=== PATIENT | male | born 1975 | race Caucasian/White ===

== ENCOUNTER 2016-08-20 05:23 | Emergency (ER) | payer MEDICAID ==
[~2016-08-20] VITALS: Ht 175.3 cm; Wt 96.0 kg
[2016-08-20 05:49] VITALS: Ht 175.3 cm; Wt 96.0 kg
[2016-08-20] MEDS ORDERED: SOD CHLORIDE 0.9% 1,000 ML IV ONE (08:00)
[2016-08-20] MEDS ORDERED: ONDANSETRON 4 MG INJ IV STA (08:31)
[2016-08-20] MEDS ORDERED: DICLOFENAC SODIUM 37.5 MG/ML VIAL IV STA (08:31)
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
[2016-08-20 09:06] LABS: ADD SCAN DIFF NO
[2016-08-20 09:11] LABS: ADD UMIC YES; URINE BILIRUBIN (Dip) 1+ (NEGATIVE); URINE BLOOD (Dip) NEGATIVE (NEGATIVE); URINE COLOR ORANGE (YELLOW); URINE GLUCOSE (Dip) NEGATIVE (NEGATIVE); URINE KETONES (Dip) NEGATIVE (NEGATIVE); URINE LEUKOCYTE ESTERASE (Dip) NEGATIVE (NEGATIVE); URINE NITRITE (Dip) NEGATIVE (NEGATIVE); URINE TOTAL PROTEIN (Dip) 2+ (NEGATIVE); URINE UROBILINOGEN (Dip) 0.2 E.U./dL (0.1-1.0)
[2016-08-20 09:12] LABS: BASOPHIL # 0.1 10^3/ul (0.0-0.1); BASOPHILS % 0.8 % (0.0-2.0); EOSINOPHILS # 0.3 10^3/ul (0.0-0.5); HEMATOCRIT 44.8 % (42.0-52.0); HEMOGLOBIN 15.4 g/dl (14.0-18.0); LYMPHOCYTES # 1.4 10^3/ul (0.8-2.9); LYMPHOCYTES % 16.6 % (15.0-51.0); MEAN CORPUSCULAR HEMOGLOBIN 29.3 pg (29.0-33.0); MEAN CORPUSCULAR HGB CONC 34.4 g/dl (32.0-37.0); MEAN CORPUSCULAR VOLUME 85.3 fl (82.0-101.0); MONOCYTE # 0.8 10^3/ul (0.3-0.9); MONOCYTES % 9.1 % (0.0-11.0); NEUTROPHILS % 70.3 % (39.0-77.0); PLATELET COUNT 246 10^3/UL (140-415); RED BLOOD COUNT 5.25 10^6/ul (4.70-6.10); RED CELL DISTRIBUTION WIDTH 12.7 % (11.5-14.5); WHITE BLOOD COUNT 8.6 10^3/ul (4.8-10.8)
[2016-08-20 09:19] LABS: ALBUMIN 4.4 g/dl (3.3-4.9); CHLORIDE 98 mmol/L (97-110); SODIUM 140 mmol/L (135-144)
[2016-08-20 09:20] LABS: INR 0.97; POTASSIUM 4.3 mmol/L (3.5-5.1); PROTIME 12.9 Sec (12.2-14.2)
[2016-08-20 09:21] LABS: PARTIAL THROMBOPLASTIN TIME 25.8 Sec (25.0-35.0)
[2016-08-20 09:22] LABS: ALANINE AMINOTRANSFERASE 53 IU/L (13-69); ALBUMIN/GLOBULIN RATIO 1.02; ALKALINE PHOSPHATASE 136 IU/L (42-121); ANION GAP 19 (8-16); ASPARTATE AMINO TRANSFERASE 33 IU/L (15-46); BILIRUBIN,INDIRECT 0.9 mg/dl (0-1.1); BILIRUBIN,TOTAL 0.9 mg/dl (0.2-1.3); BLOOD UREA NITROGEN 13 mg/dl (7-20); CALCIUM 9.6 mg/dl (8.4-10.2); CARBON DIOXIDE 27 mmol/L (21-31); CREATININE 0.78 mg/dl (0.61-1.24); GLUCOSE 185 mg/dl (70-220); ICTOTEST NEGATIVE (NEGATIVE); TOTAL PROTEIN 8.7 g/dl (6.1-8.1)
[2016-08-20 09:23] LABS: MUCUS,URINE MODERATE; URINE RBCS NONE SEEN /HPF (0)
[2016-08-20 09:37] LABS: TROPONIN-I < 0.012 ng/ml (0.00-0.12)
[2016-08-20] MEDS ORDERED: METF-382 PO (11:24)
[2016-08-20] MEDS ORDERED: NAPR-688 PO (11:24)
[2016-08-20] MEDS ORDERED: AMO500 PO (11:24)
[2016-08-20] MEDS ORDERED: AMLO-145 PO (11:24)
[2016-08-20] MEDS ORDERED: BENZ100C70 PO (11:24)
[2016-08-20 11:40] VITALS: BP 128/56; PULSE 60; RESP 18; TEMP 97.1
--- NOTE | 2016-08-20 11:40 | ERD ---
ER Documentation Chief Complaint Date/Time DATE: 08/20/16 TIME: 11:30 Chief Complaint cough x 5 days, incessant, chest pain, lightheaded, diaphoresis, HI sugar HPI This 40-year-old male presents to the ER with 5 days of cough. He has chest pain that is made worse when he coughs and is described as across his entire chest. He's had no fevers but has felt extra tired and a little lightheaded. States that he has checked his sugar at home and it was high. He is diagnosed with diabetes long ago and has not taken any diabetic medication for 10 years. No abdominal pain and diarrhea. Does feel like he has some nausea. Also has generalized body aches. ROS All systems reviewed and are negative except as per history of present illness. Medications Home Meds Active Scripts Naproxen* (Naproxen*) 500 Mg Tablet, 500 MG PO BID, #20 TAB Prov:LUISRAMESH 08/20/16 Benzonatate* (Tessalon Perle*) 100 Mg Capsule, 100 MG PO Q8H Y for COUGH, #20 CAP Prov:LUISRAMESH DO 08/20/16 Amoxicillin* (Amoxicillin*) 500 Mg Cap, 500 MG PO Q8, #30 CAP Prov:LUISRAMESH DO 08/20/16 Metformin Hcl* (Metformin Hcl*) 500 Mg Tablet, 500 MG PO WITH BREAKFAST DINNE, # 30 TAB Prov:RAMESH SMITH DO 08/20/16 Amlodipine Besylate* (Amlodipine Besylate*) 5 Mg Tablet, 5 MG PO DAILY, #18 TAB Prov:RAMESH SMITH 08/20/16 Allergies Allergies: Coded Allergies: No Known Allergy (Unverified , 08/20/16) PMhx/Soc History of Surgery: No Anesthesia Reaction: No Hx Neurological Disorder: No Hx Respiratory Disorders: No Hx Cardiac Disorders: No Hx Psychiatric Problems: No Hx Miscellaneous Medical Probl: Yes (DM) Hx Alcohol Use: Yes Hx Substance Use: No Hx Tobacco Use: Yes Smoking Status: Current every day smoker Physical Exam Vitals Vital Signs Date Time Temp Pulse Resp B/P Pulse Ox O2 Delivery O2 Flow Rate FiO2 08/20/16 09:16 98.4 85 16 118/81 98 Room Air 08/20/16 05:49 97.6 94 16 170/92 96 Physical Exam Const: [] No distress Head: Atraumatic Eyes: Normal Conjunctiva, EOMI, PERRLA ENT: Normal External Ears, Nose and Mouth. Neck: Full range of motion..~ No meningismus. Resp: Clear to auscultation bilaterally Cardio: Regular rate and rhythm, no murmurs Abd: Soft, non tender, non distended. Normal bowel sounds Skin: No petechiae or rashes Back: No midline or flank tenderness Ext: No cyanosis, or edema Neur: Awake and alert and oriented 3, no focal deficits Psych: Normal Mood and Affect Result Diagram: 08/20/1682908/20/1630 Results 24 hrs Laboratory Tests Test 08/20/16 05:38 08/20/16 08:30 08/20/16 10:48 Bedside Glucose 177mg/dL Activated Partial Thromboplast Time 25.8Sec Alanine Aminotransferase (ALT/SGPT) 53IU/L Albumin 4.4g/dl Albumin/Globulin Ratio 1.02 Alkaline Phosphatase 136IU/L Anion Gap 19 Aspartate Amino Transf (AST/SGOT) 33IU/L Basophils # 0.110^3/ul Basophils % 0.8% Blood Urea Nitrogen 13mg/dl Calcium Level 9.6mg/dl Carbon Dioxide Level 27mmol/L Chloride Level 98mmol/L Creatinine 0.78mg/dl Direct Bilirubin 0.00mg/dl Eosinophils # 0.310^3/ul Eosinophils % 3.0% Globulin 4.30g/dl Glucose Level 185mg/dl Hematocrit 44.8% Hemoglobin 15.4g/dl INR International Normalized Ratio 0.97 Indirect Bilirubin 0.9mg/dl Lactic Acid Level 1.5mmol/L 1.3mmol/L Lymphocytes # 1.410^3/ul Lymphocytes % 16.6% Mean Corpuscular Hemoglobin 29.3pg Mean Corpuscular Hemoglobin Concent 34.4g/dl Mean Corpuscular Volume 85.3fl Mean Platelet Volume 10.0fl Monocytes # 0.810^3/ul Monocytes % 9.1% Neutrophils # 6.010^3/ul Neutrophils % 70.3% Nucleated Red Blood Cells # 0.010^3/ul Nucleated Red Blood Cells % 0.0/100WBC Platelet Count 87860^3/UL Potassium Level 4.3mmol/L Prothrombin Time 12.9Sec Prothrombin Time Ratio 1.0 Red Blood Count 5.2510^6/ul Red Cell Distribution Width 12.7% Sodium Level 140mmol/L Total Bilirubin 0.9mg/dl Total Protein 8.7g/dl Troponin I < 0.012ng/ml Urine Bilirubin 1+ Urine Clarity CLEAR Urine Color ORANGE Urine Glucose NEGATIVE% Urine Hemoglobin NEGATIVE Urine Ictotest NEGATIVE Urine Ketones NEGATIVE Urine Leukocyte Esterase NEGATIVE Urine Microscopic RBC NONE SEEN/HPF Urine Microscopic WBC NONE SEEN/HPF Urine Mucus MODERATE Urine Nitrite NEGATIVE Urine Specific [place] >=1.030 Urine Total Protein 2+ Urine Urobilinogen 0.2 E.U./dL Urine pH 5.5 White Blood Count 8.610^3/ul Current Medications Medications (Trade) Dose Ordered Sig/Tiago Route PRN Reason Start Time Stop Time Status Last Admin Dose Admin Sodium Chloride (NS) 1,000 ml @ 1,000 mls/hr Q1H ONCE IV 08/20/16 08:00 08/20/16 08:59 DC 08/20/16 08:57 Ondansetron HCl (Zofran Inj) 4 mg ONCE STAT IV 08/20/16 08:31 08/20/16 08:33 DC 08/20/16 08:57 Diclofenac Sodium (Dyloject) 37.5 mg ONCE STAT IV 08/20/16 08:31 08/20/16 08:33 DC 08/20/16 08:57 Procedures/MDM Viral syndrome versus acute bronchitis and 40-year-old male with mild diabetes that is untreated. Also has hypertension. Is given a liter of normal saline, diclofenac and 2 mg of morphine which made him feel much better. He also given Zofran for note resolved his nausea completely. Patient has no elevated white blood cell count or any other signs of acute sepsis. He has Y for worried about not having any medications for his high blood pressure. I'm discharging him with amlodipine 5 mg. He Ejsús in a give him metformin is used to be on. Amphetamine approximate two-week supply instructions that he should follow-up his primary care doctor. No signs of ischemia on EKG and negative troponin. Chest pain is likely radiate to the cough and is musculoskeletal in origin. Patient does have [employer] and instructions to call the number on the cart to get an appointment with a primary care doctor as soon as possible. Also recommending an echocardiogram to rule out cardiac abnormalities. I am also giving him was of low cost clinics that he can follow-up with his well- appearing also discharging with Tessalon Perles, amoxicillin for the bronchitis. Return precautions to the ER were given. 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 Departure Diagnosis: Primary Impression: Diabetes Additional Impressions: Acute bronchitis Hypertension Condition: Stable Patient Instructions: Diabetes: Getting Started with Exercise, High Blood Pressure (Hypertension), Bronchitis, Antiobiotic Treatment (Adult) Referrals: [facility] YOU HAVE RECEIVED A MEDICAL SCREENING EXAM AND THE RESULTS INDICATE THAT YOU DO NOT HAVE A CONDITION THAT REQUIRES URGENT TREATMENT IN THE EMERGENCY DEPARTMENT. FURTHER EVALUATION AND TREATMENT OF YOUR CONDITION CAN WAIT UNTIL YOU ARE SEEN IN YOUR DOCTORS OFFICE WITHIN THE NEXT 1-2 DAYS. IT IS YOUR RESPONSIBILITY TO MAKE AN APPOINTMENT FOR FOLOW-UP CARE. IF YOU HAVE A PRIMARY DOCTOR --you should call your primary doctor and schedule an appointment IF YOU DO NOT HAVE A PRIMARY DOCTOR YOU CAN CALL OUR PHYSICIAN REFERRAL HOTLINE AT IF YOU CAN NOT AFFORD TO SEE A PHYSICIAN YOU CAN CHOSE FROM THE FOLLOWING [facility] CLINICS [facility] [address] [facility] [facility] [address] [facility] [facility] [address] [facility] [facility] [address] [facility] [facility]. [facility] [address] [facility] [facility]. [address] Additional Instructions: Call your primary care doctor TOMORROW for an appointment during the next 2-3 days.See the doctor sooner or return here if your condition worsens before your appointment time. RAMESH SMITH DO Aug 20, 2016 11:40
== END 2016-08-20 11:42 | disposition home or self-care (01) ==
LOC: E/R 05:23
DX: E11.9 Type 2 diabetes mellitus without complications (principal); J20.9 Acute bronchitis, unspecified; I10 Essential (primary) hypertension; F17.210 Nicotine dependence, cigarettes, uncomplicated; R11.0 Nausea
CPT/HCPCS: 36415; 71010; 80053; 81001; 82962; 83605; 84484; 85025; 85610; 85730; 87040; 87086; 93005; 96374; 96375; J2405; J7030; Z7502; Z7610; 81003